=== PATIENT | female | born 1980 | race Caucasian/White ===

== ENCOUNTER → 2018-05-18 08:17 | Outpatient (CLI) | payer BC, SELFPAY ==
[2018-05-18 10:22] LABS: Cholesterol 137 mg/dL (200); High Density Lipoprotein 63 mg/dL; Triglycerides 41 mg/dL; Very Low Density Lipoprotein 8 mg/dL (5-40)
== END ==
PROVIDERS: Family Provider Family Medicine; PCP Family Medicine; Visit Provider Family Medicine
DX: Z00.00 Encounter for general adult medical examination without abnormal findings (principal)
CPT/HCPCS: 36415; 80061

== ENCOUNTER → 2018-06-30 14:32 | Outpatient (CLI) | payer BC, SELFPAY ==
[2018-06-30 15:58] LABS: Hematocrit 38.3 % (37-47); Hemoglobin 12.1 g/dl (12.0-15.0); Mean Corp Hgb Conc 31.6 g/gl (32-36); Mean Corpuscular Hgb 28.2 pg (27.0-32.0); Mean Corpuscular Volume 89.3 fL (81-99); Mean Platelet Vol. 9.5 fl (6.2-12.0); Platelet Count 247 K/mm3 (150-450); RBC Distribution Width CV 13.4 % (11.6-14.6); RBC Distribution Width SD 43.4 fl (35.1-43.9); Red Blood Count 4.29 M/mm3 (4.2-5.4); White Blood Count 7.3 K/mm3 (4.4-11.0)
[2018-06-30 16:02] LABS: Scan Indicated on CBC? Y/N NO
[2018-06-30 16:58] LABS: HIV - WCH Non-Reactive (Nonreactive); Rubella IgG 78.6 IU/mL
[2018-07-03 11:38] LABS: HEPATITIS B SURFACE AG Negative (Negative)
[2018-07-07 01:33] LABS: Rapid Plasmin Reagin (RPR) NONREACTIVE (NONREACTIVE)
== END ==
PROVIDERS: Family Provider Family Medicine; PCP Family Medicine; Visit Provider Obstetrics & Gynecology
DX: Z34.80 Encounter for supervision of other normal pregnancy, unspecified trimester (principal); Z3A.08 8 weeks gestation of pregnancy
CPT/HCPCS: 36415; 85027; 86592; 86703; 86762; 86850; 86900; 87340

== ENCOUNTER → 2018-10-27 09:53 | Outpatient (CLI) | payer BC, SELFPAY ==
[2018-10-27 14:24] LABS: Absolute Lymphocyte Count 1.95 X10^3/ul (0.83-4.51); Absolute Neutrophil Count 4.7 X10^3/uL (2.0-7.7); Basophil# 0.02 X10^3/uL; Basophil% 0.3 % (0-1); Eosinophil# 0.13 X10^3/uL; Eosinophils% 1.7 % (0-5); Hematocrit 34.6 % (37-47); Lymphocyte # 1.95 X10^3/ul (4.0); Lymphocyte % 25.8 % (19-41); Mean Corp Hgb Conc 31.8 g/gl (32-36); Mean Corpuscular Volume 94.3 fL (81-99); Mean Platelet Vol. 9.7 fl (6.2-12.0); Monocyte# 0.72 X10^3/uL; Monocyte% 9.5 % (0-10); Neutrophil # 4.69 X10^3/uL (2.7-7.7); Platelet Count 263 K/mm3 (150-450); RBC Distribution Width CV 13.2 % (11.6-14.6); RBC Distribution Width SD 43.7 fl (35.1-43.9); Red Blood Count 3.67 M/mm3 (4.2-5.4); White Blood Count 7.6 K/mm3 (4.4-11.0)
[2018-10-27 14:25] LABS: POSITIVE COUNT NO; POSITIVE DIFFERENTIAL NO; POSITIVE MORPHOLOGY NO
[2018-10-27 14:29] LABS: Glucose Challenge Gest 1H 50g 86 mg/dL (70-140)
--- OUTSIDE RECORDS SUMMARY | 2018-12-22 04:56 | XMS RPT_ITS ---
:1980 Author Organization OHIP Care Team Providers Name Role Phone JOAQUINA PEREZ Attending Unavailable MINESH VILLANUEVA Attending Unavailable HARISH HARRIS (MIRNA) Referring Unavailable JOAQUINA PEREZ Attending Unavailable JOAQUINA PEREZ Attending Unavailable JOAQUINA PEREZ Attending Unavailable MINESH VILLANUEVA Attending Unavailable JOAQUINA PEREZ Referring Unavailable JOAQUINA PEREZ Attending Unavailable HARISH HARRIS ([facility]) Attending Unavailable ELYSE LAFLEUR Attending Unavailable MARLON JACKSON Attending Unavailable Stephen Saavedra Attending Unavailable Stephen Saavedra Primary Care Unavailable Joaquina Perez Attending Unavailable Stephen Saavedra Primary Care Unavailable Joaquina Perez Attending Unavailable Stephen Saavedra Primary Care Unavailable PROBLEMS PROBLEMS DATE TYPE CONDITION / CODE ATTENDING STATUS SOURCE 06/30/2018 Unknown Z34.80 - Nicolas Perez Jewell Encounter for [facility] other normal Repository , unspecified trimester / Z34.80(ICD-10) 06/30/2018 Unknown Z3A.08 - 8 weeks Nicolas Perez [place] gestation of [facility] Z3A.08(ICD-10) Repository 05/18/2018 Unknown Z00.00 - Stephen Saavedra Active Jewell Encounter for [facility] medical Repository examination without abnormal findings / Z00.00(ICD-10) 12/21/2017 Active Unknown / ANA Active [facility] UNK(Unknown) JOAQUINA L Main [place] Repository PROCEDURES PROCEDURES No Procedure Records FoundRESULTS RESULTS CBC W/DIFF, AUTOMATED Collected: 10/27/2018 Status: F Source: [place] 9:50 AM [facility] CODE TESTS RESULT OUT OF RANGE REFERENCE UNITS LAB L100.1000 4.4-11.0 K/mm3 Normal WBC 7.6 LAB L100.1200 4.2-5.4 M/mm3 Low RBC 3.67 LAB L100.1300 12.0-15.0 g/dl Low HGB 11.0 LAB L100.1400 37-47 % Low HCT 34.6 LAB L100.1500 81-99 fL Normal MCV 94.3 LAB L100.1600 27.0-32.0 pg Normal MCH 30.0 LAB L100.1700 32-36 g/gl Low MCHC 31.8 LAB L100.1810 11.6-14.6 % Normal RDW CV 13.2 LAB L100.1820 35.1-43.9 fl Normal RDW SD 43.7 LAB L100.1900 150-450 K/mm3 Normal PLT 263 LAB L100.2000 6.2-12.0 fl Normal MPV 9.7 LAB L100.2100 47-70 % Normal NEUT% 62.0 LAB L100.2200 19-41 % Normal LY% 25.8 LAB L100.2300 0-10 % Normal MONO% 9.5 LAB L100.2400 0-5 % Normal EO% 1.7 LAB L100.2500 0-1 % Normal BASO% 0.3 LAB L100.2550 0.0-0.9 % Normal IM GRAN % 0.700 Result Comment: IG% - Immature Granulocytes (promyelocytes, myelocytes and metamyelocytes) > 1% indicates that a LEFT SHIFT is Present. LAB L100.2620 2.0-7.7 X10 3/uL Normal Absolute Neut 4.7 LAB L100.2720 0.83-4.51 X10 3/ul Normal Absolute Lymph 1.95 Performed By: #### L100.0100 #### [facility] [address] [place], [address] GLUCOSE CHALLENGE GEST Collected: 10/27/2018 Status: F Source: [place] 1H 50G 9:50 AM [facility] [place] TYPE CODE TESTS RESULT OUT OF RANGE REFERENCE UNITS LAB L501.0250 70-140 mg/dL Normal GLU GEST 86 50g 1H Performed By: #### L501.0250 #### [facility] [address] [place], [address] PROGRESS Observed: 08/29/2018 Status: COMPLETED Source: [place] 9:15 AM [facility] REPOSITORY HNO ID: [id number] Author: Minesh Villanueva Service: (none) Author Type: Physician Type: Progress Notes Filed: 08/29/2018 9:16 AM Note Text: A harris? fetus in utero with symmetric measurements Adequate growth (AGA). Estimated Date of Delivery: 01/20/19 EGA = 19w3d The anatomy appears normal. There are no evident malformations and /or effusions. No genetic markers are noted. The amniotic fluid volume is within normal limits. The sensitivity of ultrasound in the detection of malformations overall is approximately 35%. RECOMMENDATIONS: - Follow up ultrasound as clinically indicated PROGRESS Observed: 08/15/2018 Status: COMPLETED Source: [place] 8:59 AM [facility] REPOSITORY HNO ID: [id number] Author: Camille Caldwell Ma Service: (none) Author Type: (none) Type: Progress Notes Filed: 08/15/2018 11:46 AM Note Text: 38 year old female here for INACTIVATED INFLUENZA VACCINE. [id number] Season Patient is identified by name and date of : Yes [] CONTRAINDICATIONS color enhanced section Age less than 6 months? No Allergy to eggs, chicken, chicken feathers, or chicken dander? No Allergy to thimerosal (a preservative) or formaldehyde? No History of severe reaction to any vaccine component or a previous dose of influenza vaccination? No History of Guillain-[place] Syndrome within 6 weeks after a previous influenza vaccine? No Current moderate or severe illness? No Current temperature greater or equal to 100.4F? No History of Bone Marrow Transplant in past 6 months or solid organ transplant in the past 3 months ? No [] VERIFICATION color enhanced section Was the answer Yes for any of the above contraindications? No contraindications present. Acceptable to proceed with vaccine. Patient/guardian agrees the above answers are true to the best of their knowledge? Yes Flu vaccine information sheet given? Yes See immunization activity in [facility] for details of immunizations adminstered today. Patient age: [age] year old For The 4084-2285 Flu Season 6-35 months old: Fluzone 0.25 ml - IM (Preservative Free) 3 years of age: Fluzone 0.5 ml - IM (Preservative Free) 3 years and older: Fluzone 0.5 ml- IM-(with Preservatives) 65+ years old: Fluzone High-Dose 0.5 ml - IM (Preservative Free) REMEMBER: If patient is less than 9 years of age and this is the first vaccine of Influenza to be received in any flu season, they should receive a second dose in one months time. Camille Caldwell Ma CBC-COMPLETE BLOOD CNT Collected: 06/30/2018 Status: F Source: [place] NO DIFF 2:33 PM [facility] [place] TYPE CODE TESTS RESULT OUT OF RANGE REFERENCE UNITS LAB L100.1000 4.4-11.0 K/mm3 Normal WBC 7.3 LAB L100.1200 4.2-5.4 M/mm3 Normal RBC 4.29 LAB L100.1300 12.0-15.0 g/dl Normal HGB 12.1 LAB L100.1400 37-47 % Normal HCT 38.3 LAB L100.1500 81-99 fL Normal MCV 89.3 LAB L100.1600 27.0-32.0 pg Normal MCH 28.2 LAB L100.1700 32-36 g/gl Low MCHC 31.6 LAB L100.1810 11.6-14.6 % Normal RDW CV 13.4 LAB L100.1820 35.1-43.9 fl Normal RDW SD 43.4 LAB L100.1900 150-450 K/mm3 Normal PLT 247 LAB L100.2000 6.2-12.0 fl Normal MPV 9.5 Performed By: #### L100.0500 #### [facility] [address] [place], [place], [id number] TYPE AND SCREEN Collected: 06/30/2018 Status: F Source: [place] 2:33 PM [facility] [place] Order Comment: Reason for Type AND Screen/Red Cells: TYPE CODE TESTS RESULT OUT OF RANGE REFERENCE UNITS LAB B10.0800 O Normal BLOOD TYPE GEL POSITIVE LAB B100.4000 Normal Antibody NEGATIVE Screen Performed By: #### B101.7450 #### [facility] [address] [place], [address] RUBELLA IGG Collected: 06/30/2018 Status: F Source: [place] 2:33 PM [facility] TYPE CODE TESTS RESULT OUT OF RANGE REFERENCE UNITS LAB L509.4000 IU/mL Normal Rubella IgG 78.6 Result Comment: Antibody results Interpretation of Immune Status < 5 IU/ml Presumed Non-immune 5 - < 10 IU/ml Equivocal > or = 10 IU/ml Presumed Immune Performed By: #### L509.4000, L3890.6005 #### [facility] [place], [place], [id number] HIV - [facility] Collected: 06/30/2018 Status: F Source: [place] 2:33 PM [facility] [place] TYPE CODE TESTS RESULT OUT OF RANGE REFERENCE UNITS LAB L3890.6005 Nonreactive Normal HIV - [facility] Non-Reactive Performed By: #### L509.4000, L3890.6005 #### [facility] [place], [place], [address] HEPATITIS B SURFACE Collected: 06/30/2018 Status: F Source: [place] AG 2:33 PM [facility] [place] TYPE CODE TESTS RESULT OUT OF RANGE REFERENCE UNITS LAB L3100.0400 Negative Normal HB Negative SURF AG Result Comment: Performed at: - [facility] [address] [id number] Nuclear Worker Technician: Emory Payan PhD, Phone: [phone] Performed By: #### L3100.0390 #### [facility] (refer to report for specific site) refer to report for address and phone number RAPID PLASMIN REAGIN Collected: 06/30/2018 Status: F Source: [place] (RPR) 2:33 PM [facility] [place] TYPE CODE TESTS RESULT OUT OF REFERENCE UNITS RANGE LAB L700.5000 NONREACTIVE NONREACTIVE Normal RPR Performed By: #### L700.5000 #### [facility] [address] [place], [address] GC/CHLAMYDIA AMPLIF Collected: 06/13/2018 Status: F Source: [place] 11:30 AM [facility] REPOSITORY TYPE CODE TESTS RESULT OUT OF REFERENCE UNITS RANGE LAB GCCTSR GC/Chlam Amp Cervix Source LAB GCAMPL GC Negative Amplification for Neisseria gonorrhoeae by amplification. LAB CLAMPL Chlamydia Negative Amplif for Chlamydia trachomatis by amplification. Performed By: #### GCCT #### [facility] [address] [place], [place] [address] TOXICOLOGY SCREEN,UR Collected: 06/13/2018 Status: F Source: [place] 11:00 AM [facility] REPOSITORY TYPE CODE TESTS RESULT OUT OF REFERENCE UNITS RANGE LAB UPCP2 Negative Negative Phencyclidin e, Urine Result Comment: Cutoff threshold at 25 ng/mL. LAB UBENZ2 Negative Benzodiazepines, Ur Negative Result Comment: Cutoff threshold at 200 ng/mL. LAB UCOC2 Negative Cocaine, Negative Urine Result Comment: Cutoff threshold at 300 ng/mL. LAB UAMPH2 Negative Amphetamines, Urine Negative Result Comment: Cutoff threshold at 1000 ng/mL. LAB UTHC2 Negative Cannabinoids, Urine Negative Result Comment: Cutoff threshold at 50 ng/mL. LAB UOPI2 Negative Opiates, Negative Urine Result Comment: Cutoff threshold at 300 ng/mL. LAB UBARB2 Negative Barbiturates, Urine Negative Result Comment: Cutoff threshold at 200 ng/mL. LAB UETOH <11 mg/dL <11 Ethanol, Urine LAB UOXYC Negative Oxycodone, Negative Urine Result Comment: Cutoff threshold at 100 ng/mL. Comment: Immunoassay screen only. Cross reactivity with other substances can occur with immunoassay screening. Detection of any drug(s) in this urine toxicology panel is presumptive only. These tests are for med ica purposes only and should not be used for compliance monitoring, legal, or forensic use. Samples should be within normal physiological conditions (e.g. pH). This assay does not include adulteration/specimen validity testing. In clinical settings, confirmatory testing is at the practitioner's discretion [1]. If clinically indicated, confirmation by high specificity, quantitative methodology, which includes adulteration/spec imen validity testing, may be requested on the same specimen through Client Services ([phone]) if contacted within 48 hours of initial testing. [1]Substance Abuse and Mental Health Services Administration (2012). Clinical Drug Testing in Primary Care Technical Assistance Publication Series 32. Department of Health and Human Services, [place], p.10. These tests were developed and their performance characteristics determined by [facility]'s [facility] Pathology and Laboratory Medicine [place] ([facility]). They have not been cleared or a pproved by the FDA. [facility] is regulated under CLIA as qualified to perform high complexity testing. These tests are used for clinical purposes. They should not be regarded as investigational or for research. Performed By: #### UTOX2 #### [facility] [address] [place], [place] [address] Observed: 06/13/2018 Status: F Source: [place] URINE CULTURE 11:00 AM [facility] REPOSITORY Sp. Request/Comment: - Best Practice Alert: To ensure optimal transport conditions and accurate culture results transfer urine specimens to russ top C and S preservative tube. Culture Result - No growth (<1,000 CFU/ml) Performed By: #### URCUL #### [facility] [address] [place], [place] [address] PROGRESS Observed: 06/13/2018 Status: COMPLETED Source: [place] 10:14 AM [facility] REPOSITORY HNO ID: [id number] Author: Joaquina Perez Service: (none) Author Type: Physician Type: Progress Notes Filed: 06/13/2018 10:54 AM Note Text: INITIAL OB ASSESSMENT OB Provider: Joaquina Perez MD HPI: Tessa Franco is a 37 year old female here to establish Obstetrical Care. Patient's last menstrual period was 04/09/2018. from OB Dating Form. Cycle length: irreg in number of days Complaints: nausea without vomiting was planned. Obstetric History T2 L2 SAB1 TAB0 Ectopic0 Multiple0 Live Births2 Comment: G3 8 week size, 11 w by dates. DANDC-RR Prior : yes x 1 History of 4th degree laceration: No Patient's Risk Screening for delivery: History of abnormal pap: No Prior treatment for cervical dysplasia: none. History of STDs: None Tobacco use: No Caffeine use: No Drug use: No Alcohol use: No Multivitamin with Folic acid: Yes Occupation: homemaker Hinduism or heritage: No Would refuse blood transfusion if medically necessary: No No weight on file for this encounter. Patient BMI over 30? No Marital Status: Partner: Name: Ricky Age: 46 Occupation: [employer] Gender: male History of STDs: None PAST MEDICAL HISTORY Diagnosis Date - Abnormal Pap smear of cervix ASCUS pap negative HPV - Depression - depression with 1st PAST SURGICAL HISTORY Procedure Laterality Date - DELIVERY ONLY 2006 , low transverse - DANDC (MISSED AB 1ST TRIMESTER) 08/19/2017 - [facility] N/CARPAL TUNNEL SURG Right 01/02/2016 Carpal tunnel decomp right - [facility] N/CARPAL TUNNEL SURG Left 01/30/2016 Carpal tunnel decomp - ONLY 03/2015 Current Outpatient Prescriptions on File Prior to Visit: sertraline (ZOLOFT) 50 mg tablet Take 1 tablet by mouth once daily. [id number] fum-folic acid-dss (SE-JORDAN 19, WITH DOCUSATE,) 29 mg iron- 1 mg-25 mg tab Take 1 Dose by mouth once daily. dapsone (ACZONE) 7.5 % glwp Apply to affected area. No current facility-administered medications on file prior to visit. Review of Systems: GENERAL: Negative for: Fever or Chills HEENT: Negative for: Headache, Impaired Vision, Ringing in Ears, Nosebleeds NECK: Negative for: Swelling, Pain, Stiffness RESPIRATORY: Negative for: Cough, Shortness of breath, Wheezing GASTROINTESTINAL: Negative for: Heartburn, Constipation, Diarrhea, Blood in stool, Vomiting MUSCULOSKELETAL: Negative for: Muscle or joint pain, stiffness, Joint swelling NEUROLOGIC/PSYCHIATRIC: Negative for: Weakness, Paralysis, Numbness, Tingling, Tremor, Anxiety, Depression, Memory loss SKIN: Negative for: Rash, Itching GENITOURINARY: Negative for: vaginal itching, vaginal discharge, hematuria or dysuria PHYSICAL EXAM: LMP 04/09/2018 GENERAL: pleasant female DERMATOLOGY: Normal, without lesions, non-icteric and non-hirsute NECK: Supple, full range of motion, no adenopathy and thyroid normal CHEST: Normal inspiratory effort BREAST: soft, non-tender, symmetric, no dominant mass, normal nipple-areolar complex, no lymphadenopathy and no nipple discharge ABDOMEN: soft, non-tender and no masses NEURO: alert and oriented x3,exam grossly non-focal PELVIS: External genitalia normal without lesions. Perineal body intact. No vaginal or cervical lesions. Cervix closed. Uterus 8 week size. No adnexal masses or tenderness. Clinical Pelvimetry: Pelvimetry clinically assessed as adequate Limited OB ultrasound exam: not performed, single intrauterine , positive cardiac activity and crown-rump length 21.1 mm ASSESSMENT: 37 year old at 8w3d wks gestational age PLAN: 1) Patient oriented to practice. Discussed nutrition, folic acid supplementation, dietary guidelines, exercise, smoking, alcohol, caffeine, and drug use. Discussed routine OB labs including STD/HIV. Discussed aneuploidy screening options including serum screening and nuchal translucency. Patient declines all aneuploidy screening. CF carrier screening discussed and declined. 2) Recommend ASA 81 mg daily at 11-12 weeks to decrease risk of preeclampsia Follow up in 4 weeks or sooner prn. Joaquina Perez MD PROGRESS Observed: 05/30/2018 Status: COMPLETED Source: [place] 1:45 PM [facility] REPOSITORY HNO ID: [id number] Author: Minesh Villanueva Service: (none) Author Type: Physician Type: Progress Notes Filed: 05/30/2018 1:46 PM Note Text: A single intrauterine gestational sac is noted with a regular outline. No decidual hemorrhage is noted. The yolk sac appears normal. An embryo is visualized with a heart rate within normal range Estimated Date of Delivery: 01/20/19 EGA = 6w3d The CRL corresponds to the gestational age. RECOMMENDATIONS - Ultrasound examination at 11 to 13 weeks To mesure the nuchal translucency (NT) if first trimester screening is desired . PROGRESS Observed: 05/18/2018 Status: COMPLETED Source: [place] 11:21 AM [facility] REPOSITORY HNO ID: [id number] Author: Susanna He RN Service: (none) Author Type: (none) Type: Progress Notes Filed: 05/18/2018 11:37 AM Note Text: #: 1, Date: 03/16/07, Sex: Male, Weight: 7 lb 12 oz (3.515 kg), GA: 38w4d, Delivery: , Low Transverse, Apgar1: None, Apgar5: None, Living: Living, Comments: labor at 36 weeks. #: 2, Date: 04/06/15, Sex: Male, Weight: 7 lb 6 oz (3.345 kg), GA: 38w5d, Delivery: , Spontaneous, Apgar1: None, Apgar5: None, Living: Living, Comments: , SROM, labor augmented with pitocin, 2nd degree vaginal laceration, EBL 300cc #: 3, Date: 08/19/17, Sex: None, Weight: None, GA: 11w6d, Delivery: MISSED AB, Apgar1: None, Apgar5: None, Living: None, Comments: None #: 4, Date: None, Sex: None, Weight: None, GA: None, Delivery: None, Apgar1: None, Apgar5: None, Living: None, Comments: None LIPID PROFILE Collected: 05/18/2018 Status: F Source: [place] 8:19 AM [facility] [place] TYPE CODE TESTS RESULT OUT OF RANGE REFERENCE UNITS LAB L501.4900 200 mg/dL Normal CHOL 137 Result Comment: <200 mg/dL Desirable 200-240 mg/dL Borderline >240 mg/dL High Risk LAB L501.5000 mg/dL Normal TRIG 41 Result Comment: The drugs N-Acetylcysteine and Metamizole may falsely depress this assay. Serum Triglycerides Reference Interval Normal <150 mg/dL Borderline high 150 - 199 mg/dL High 200 - 499 mg/dL Very High > or = 500 mg/dL LAB L501.6400 mg/dL Normal HDL 63 Result Comment: The drugs N-Acetylcysteine and Metamizole may falsely depress this assay. Reference Range HDL <40 mg/dL Low HDL Cholesterol HDL >or= 60 mg/dL High HDL Cholesterol LAB L501.6500 0-130 mg/dL Normal LDL 66 LAB L501.6600 5-40 mg/dL Normal VLDL 8 Performed By: #### L500.4100 #### [facility] [address] [place], [address] CNNURSE Observed: 05/18/2018 Status: COMPLETED Source: [place] 7:30 AM [facility] REPOSITORY Nurse Visit (WOOB) TESSA FRANCO ([id number]) 1980 F Date Time Provider Department 05/18/18 7:30 AM NURSE PNOB [facility] WOOB During your visit today, we recorded the following information about you: Last Period 04/09/18 Susanna He RN 05/18/2018 8:03 AM Signed SEQUENTIAL SCREENINGS The [facility] offers sequential screenings for women who are interested in screenings for chromosomal abnormalities and certain defects during a . The sequential screen combines ultrasound and blood tests to determine the risk of chromosomal abnormalities, including Down's Syndrome (Trisomy 21) and Trisomy 18, as well as open neural tube defects including spina bifida. Ultrasound examination is performed between 11 weeks and 13 weeks gestational age. Blood tests are drawn after the ultrasound and again later in the between 15 and 21 weeks gestational age. Please let your physician know if you are interested in this testing. It will require an appointment with our fuel testing technician. This is not an ultrasound performed by a physician in our office during a routine visit. SIGNS AND SYMPTOMS OF LABOR 1. Contractions every 10 minutes or more often 2. Clear, pink, or brownish fluid (water) leaking from vagina 3. Feeling that baby is pushing down, pressure 4. Low, dull backache 5. Cramps that feel like a period 6. Cramps with or without diarrhea If you notice any of the above symptoms, contact our office at [phone] and ask to speak with a nurse. After hours, you can call [facility] at [phone] OR call [facility] at [phone] and ask to have the doctor sole conditioner paged. If you consider this an emergency, dial [phone]-- or go to your nearest emergency department. Cord-Blood Banking Up until recently, the umbilical cord--along with the blood that remained in it after a baby was born and the cord cut--was simply discarded by the hospital. Then, in the late , researchers discovered that cord blood possessed unusual properties that made it useful in the treatment of patients with some cancers and other illnesses. While the actual process of collecting cord blood is straightforward, many parents are not even aware that this option now exists, much less familiar with all the issues involved. The case for saving your baby's cord blood The blood running back and forth between your baby and the placenta is full of immature cells called stem cells. Unlike embryonic stem cells, which have the ability to develop into any type of body cell, cord-blood stem cells already are locked into a certain, vital function: making all the different components of the blood, such as platelets, white blood cells, and red blood cells-serving, in effect, like bone marrow. When transfused into a patient whose own blood cells have faulty genetic coding or have been destroyed by chemotherapy or other cancer treatments, the cord-blood cells can implant themselves in the bone marrow and generate legions of new, healthy cells. These days, cord-blood transplants most commonly are used in cancer patients when a donor can't be found for a bone-marrow transplant. The treatment is particularly effective in young patients-the [facility] Cord Blood [facility] reports a 70 percent success rate in children, but only 20 to 40 percent in adults. Researchers envision improving those odds and see many future applications as well, such as curing sickle cell disease and other blood-related genetic illnesses. So there is a possibility that your child, or someone else, may need these super-healthy and versatile cells one day. The drawbacks Aside from not knowing about this medical option, the main reason most people do not save their baby's stem cells is cost. In a private blood bank, the initial costs run from $275 to $1,500. Most also charge a yearly storage fee of $50 to $95. The advantage of using a private bank is that your sample is saved for only you to use. An alternative to private banking Public cord-blood howe are an alternative. These cost no money to use, but your sample is not specifically saved for you. Another person with a more immediate need may use it. If the time should come that you need stem cells, yours may still be available, or you may use donations from other people without charge. You also can direct your sample to go to a relative with an immediate need if the blood type matches. Anyone else needing to use stem cells from a public bank who has not been a donor must pay for it, sometimes tens of thousands of dollars. Will my family benefit from saving stem cells? Right now, situations in which stem cells would be helpful are quite rare. As mentioned earlier, stem-cell transplants are most commonly used for rare genetic conditions and for some types of cancer, including leukemia and lymphoma. And even with these present uses, many questions remain. In cancer treatment, for example, some researchers are concerned about the wisdom of transplanting back into the child the same cells that already showed a propensity to become malignant. Doctors also aren't sure if the number of cells taken at the time of would be enough to treat a full-grown 16-year-old. It is also not completely clear how active the cells would be after years of being stored. The treatment is so new and rare, we just don't have the data yet to resolve these important issues. What do the experts say? The [employer] [employer] encourages philanthropic blood banking in public howe, but only for families with a current or potential need. Blood-bank proponents encourage any kind of banking, pointing out that research is getting closer and closer to many diverse, live-saving applications. How do I decide? Each family must weigh the pros and cons for themselves. Some families say that any cost is worth their peace of mind. Others say that in the face of uncertainty about the effectiveness of the treatment, they will use their resources elsewhere. Some choose the middle ground of donating publicly, knowing that their sample might benefit another family, if not themselves. For more information, ask your doctor or nurse, and be sure to check out our article on the technical aspects of cord-blood banking. Technical Aspects of Cord-Blood Banking If you are interested in storing your baby's umbilical-cord blood because of its possible use in emerging medical treatments, you must make arrangements with a blood bank before your child is born. The collection procedure is quite simple: After delivery of the baby, the umbilical cord is clamped and cut in the usual way. The blood that remains in the umbilical-cord vessels is then collected in sterile containers. The blood may be removed from the cord with a large needle or allowed to flow freely, depending on the company's collection system. The containers may look like large test tubes or like the plastic bags used in a blood bank. It does not cause the mother or the baby any pain to collect the blood, and no blood is taken that the baby needs at the moment. The nurse, oil pipeline operator, or physician will then label the samples, check them over with you, and package them for a special pickup arranged with a commercial carrier. When the blood arrives at the blood-bank facility, it is processed and the parents are notified. It is then kept in an advanced storage system for years. How do I know that my sample is safe? Power outages and bankruptcies potentially could threaten any organization, but so far none have been reported. It is to be hoped that the scientists in these howe would arrange for safe transfer to another facility if the need arose. YOU MUST MAKE ARRANGEMENTS AHEAD OF TIME! Public cord-blood howe--DONATION: [employer] [phone] [facility]'s Placental Blood Program, [facility] Umbilical Cord Blood Bank, Private cord-blood howe--SAVING FOR YOUR OWN USE: [employer], (I think this is the least expensive) [employer] [phone] [employer], [phone]) [employer] [place] [facility], [phone] Cells, [phone] [place] [facility], Cord Blood Registry, [phone]) [employer], An Internet search may provide you with additional listings. Susanna He RN 05/18/2018 11:37 AM Signed #: 1, Date: [birth year], Sex: Male, Weight: 7 lb 12 oz (3.515 kg), GA: 38w4d, Delivery: , Low Transverse, Apgar1: None, Apgar5: None, Living: Living, Comments: labor at 36 weeks. #: 2, Date: 04/06/15, Sex: Male, Weight: 7 lb 6 oz (3.345 kg), GA: 38w5d, Delivery: , Spontaneous, Apgar1: None, Apgar5: None, Living: Living, Comments: , SROM, labor augmented with pitocin, 2nd degree vaginal laceration, EBL 300cc #: 3, Date: 08/19/17, Sex: None, Weight: None, GA: 11w6d, Delivery: MISSED AB, Apgar1: None, Apgar5: None, Living: None, Comments: None #: 4, Date: None, Sex: None, Weight: None, GA: None, Delivery: None, Apgar1: None, Apgar5: None, Living: None, Comments: None Referring Provider: SELF [200] Allergies As of Date: 05/18/2018 Noted Allergy Reaction SEASONAL ALLERGIES 07/21/2017 14 - Other: See Comments Date Reviewed: 05/18/2018 Reviewed by: Susanna He RN - Fully Assessed Reason for Visit: Care [86] Cmt: Pre-New OB Primary Visit Diagnosis:ADVANCED MATERNAL AGE:MULTIPARA[659.63] [O09.529] Other Visit Diagnoses:History of miscarriage [Z87.59] Antepartum multigravida of advanced maternal age [O09.529] History of [Z98.891] Current with history of spontaneous during prior [O09.299] Previous labor affecting , antepartum [O09.219] History of depression [Z87.59, Z86.59] Order(s):NABILA PT ED WILDLIFE PROTECTOR [] Order #: [id number]: 1 FUTURE NABILA PT ED WILDLIFE PROTECTOR [] Order #: [id number]: 1 FUTURE NABILA PT ED WILDLIFE PROTECTOR [] Order #: [id number]: 1 FUTURE NABILA PT ED WILDLIFE PROTECTOR [] Order #: [id number]: 1 FUTURE NABILA PT ED WILDLIFE PROTECTOR [] Order #: [id number]. #:[id number]: 1 NABILA PT ED WILDLIFE PROTECTOR [] Order #: [id number]. #:[id number]: 1 NABILA PT ED WILDLIFE PROTECTOR [] Order #: [id number]. #:[id number]: 1 NABILA PT ED WILDLIFE PROTECTOR [] Order #: [id number]. #:[id number]: 1 OBSTETRIC ULTRASOUND WHI [[id number]] Order #: [id number]: 1 Prescriptions as of 05/18/2018 Sig: SERTRALINE 50 MG TABLET Take 1 tablet by mouth once d* VIT 119-IRON FUM 29 * Take 1 Dose by mouth once niyah* DAPSONE 7.5 % TOPICAL GEL WIT* Apply to affected area. Problem List As Of Date 05/18/2018 Noted Resolved Anxiety in , antepartum [O99.340, F41.*INVALID FOR*06/02/2015 Vomiting or nausea of [O21.9] INVALID FOR*06/02/2015 History of delivery affecting pregnanc*INVALID FOR* More... Supervision of normal [Z34.90] INVALID FOR*06/02/2015 More... Carpal tunnel syndrome, right [G56.01] INVALID FOR* Anxiety and depression [F41.9, F32.9] INVALID FOR* Carpal tunnel syndrome, left [G56.02] INVALID FOR* Advanced maternal age in multigravida [O09.529] INVALID FOR* More... History of depression [Z86.59] INVALID FOR* More... Family history of myelofibrosis [Z82.0] INVALID FOR* More... Patient requested diagnostic testing [Z01.89] INVALID FOR* More... Antepartum multigravida of advanced maternal ag*INVALID FOR* More... History of [Z98.891] INVALID FOR* More... Current with history of spontaneous a*INVALID FOR* More... Previous labor affecting , ant*INVALID FOR* More... History of depression [Z87.59, Z86.5*INVALID FOR* More... Other instructions from your clinician: SEQUENTIAL SCREENINGS The [facility] offers sequential screenings for women who are interested in screenings for chromosomal abnormalities and certain defects during a . The sequential screen combines ultrasound and blood tests to determine the risk of chromosomal abnormalities, including Down's Syndrome (Trisomy 21) and Trisomy 18, as well as open neural tube defects including spina bifida. Ultrasound examination is performed between 11 weeks and 13 weeks gestational age. Blood tests are drawn after the ultrasound and again later in the between 15 and 21 weeks gestational age. Please let your physician know if you are interested in this testing. It will require an appointment with our fuel testing technician. This is not an ultrasound performed by a physician in our office during a routine visit. SIGNS AND SYMPTOMS OF LABOR 1. Contractions every 10 minutes or more often 2. Clear, pink, or brownish fluid (water) leaking from vagina 3. Feeling that baby is pushing down, pressure 4. Low, dull backache 5. Cramps that feel like a period 6. Cramps with or without diarrhea If you notice any of the above symptoms, contact our office at [phone] and ask to speak with a nurse. After hours, you can call doctors registry at [phone] OR call [facility] at [phone] and ask to have the doctor sole conditioner paged. If you consider this an emergency, dial 9-1-1 or go to your nearest emergency department. Cord-Blood Banking Up until recently, the umbilical cord--along with the blood that remained in it after a baby was born and the cord cut--was simply discarded by the hospital. Then, in the late , researchers discovered that cord blood possessed unusual properties that made it useful in the treatment of patients with some cancers and other illnesses. While the actual process of collecting cord blood is straightforward, many parents are not even aware that this option now exists, much less familiar with all the issues involved. The case for saving your baby's cord blood The blood running back and forth between your baby and the placenta is full of immature cells called stem cells. Unlike embryonic stem cells, which have the ability to develop into any type of body cell, cord-blood stem cells already are locked into a certain, vital function: making all the different components of the blood, such as platelets, white blood cells, and red blood cells-serving, in effect, like bone marrow. When transfused into a patient whose own blood cells have faulty genetic coding or have been destroyed by chemotherapy or other cancer treatments, the cord-blood cells can implant themselves in the bone marrow and generate legions of new, healthy cells. These days, cord-blood transplants most commonly are used in cancer patients when a donor can't be found for a bone-marrow transplant. The treatment is particularly effective in young patients- the [facility] Cord Blood Bank reports a 70 percent success rate in children, but only 20 to 40 percent in adults. Researchers envision improving those odds and see many future applications as well, such as curing sickle cell disease and other blood-related genetic illnesses. So there is a possibility that your child, or someone else, may need these super-healthy and versatile cells one day. The drawbacks Aside from not knowing about this medical option, the main reason most people do not save their baby's stem cells is cost. In a private blood bank, the initial costs run from $275 to $1,500. Most also charge a yearly storage fee of $50 to $95. The advantage of using a private bank is that your sample is saved for only you to use. An alternative to private banking Public cord-blood howe are an alternative. These cost no money to use, but your sample is not specifically saved for you. Another person with a more immediate need may use it. If the time should come that you need stem cells, yours may still be available, or you may use donations from other people without charge. You also can direct your sample to go to a relative with an immediate need if the blood type matches. Anyone else needing to use stem cells from a public bank who has not been a donor must pay for it, sometimes tens of thousands of dollars. Will my family benefit from saving stem cells? Right now, situations in which stem cells would be helpful are quite rare. As mentioned earlier, stem-cell transplants are most commonly used for rare genetic conditions and for some types of cancer, including leukemia and lymphoma. And even with these present uses, many questions remain. In cancer treatment, for example, some researchers are concerned about the wisdom of transplanting back into the child the same cells that already showed a propensity to become malignant. Doctors also aren't sure if the number of cells taken at the time of would be enough to treat a full-grown 16-year-old. It is also not completely clear how active the cells would be after years of being stored. The treatment is so new and rare, we just don't have the data yet to resolve these important issues. What do the experts say? The [place] [employer] encourages philanthropic blood banking in public howe, but only for families with a current or potential need. Blood-bank proponents encourage any kind of banking, pointing out that research is getting closer and closer to many diverse, live-saving applications. How do I decide? Each family must weigh the pros and cons for themselves. Some families say that any cost is worth their peace of mind. Others say that in the face of uncertainty about the effectiveness of the treatment, they will use their resources elsewhere. Some choose the middle ground of donating publicly, knowing that their sample might benefit another family, if not themselves. For more information, ask your doctor or nurse, and be sure to check out our article on the technical aspects of cord-blood banking. Technical Aspects of Cord-Blood Banking If you are interested in storing your baby's umbilical- cord blood because of its possible use in emerging medical treatments, you must make arrangements with a blood bank before your child is born. The collection procedure is quite simple: After delivery of the baby, the umbilical cord is clamped and cut in the usual way. The blood that remains in the umbilical-cord vessels is then collected in sterile containers. The blood may be removed from the cord with a large needle or allowed to flow freely, depending on the company's collection system. The containers may look like large test tubes or like the plastic bags used in a blood bank. It does not cause the mother or the baby any pain to collect the blood, and no blood is taken that the baby needs at the moment. The nurse, oil pipeline operator, or physician will then label the samples, check them over with you, and package them for a special pickup arranged with a commercial carrier. When the blood arrives at the blood- bank facility, it is processed and the parents are notified. It is then kept in an advanced storage system for years. How do I know that my sample is safe? Power outages and bankruptcies potentially could threaten any organization, but so far none have been reported. It is to be hoped that the scientists in these howe would arrange for safe transfer to another facility if the need arose. YOU MUST MAKE ARRANGEMENTS AHEAD OF TIME! Public cord-blood howe--DONATION: [employer] [phone] [facility]'s Placental Blood Program, [facility] Umbilical Cord Blood Bank, Private cord-blood howe--SAVING FOR YOUR OWN USE: [employer], (I think this is the least expensive) [employer] [phone] [employer], [phone]) [employer] [place] [facility], [phone] Cells, [phone] [place] [facility], Cord Blood Registry, ([phone]) CORDBLOOD [employer], An Internet search may provide you with additional listings. Disposition: Return in 4 weeks (on 06/13/2018) for New OB with Dr Perez. Follow-up and Disposition History Recorded Encounter Status:Closed by SUSANNA HE RN on 05/18/18 PROGRESS Observed: 01/02/2018 Status: COMPLETED Source: [place] 11:13 AM [facility] REPOSITORY HNO ID: [id number] Author: Alina Dalal Psr Service: (none) Author Type: (none) Type: Progress Notes Filed: 01/02/2018 11:13 AM Note Text: pap logged, letter sent. Alina Dalal Psr HPV W/GENOTYPE Collected: 12/21/2017 Status: F Source: [place] 5:02 PM [facility] REPOSITORY TYPE CODE TESTS RESULT OUT OF REFERENCE UNITS RANGE LAB HPVT16 HPV HighRisk Negative for Type 16 HPV DNA high risk type 16 by PCR. LAB HPVT18 HPV HighRisk Negative for Type 18 HPV DNA high risk type 18 by PCR. LAB HPVHRO HPV HighRisk Negative for Other HPV DNA high risk types: 31,33,35,39,45 ,51,52,56,58,5 9,66,68 by PCR. Result Comment: This test was developed and its performance characteristics determined by [facility]'s [facility] [place] ([facility]). It has not been cleared or approved by the FDA. [facility] is regulated under CLIA as qualified to perform high-complexity testing. This test is used for clinical purposes. It should not be regarded as inv estigational or for research. Performed By: #### HPVHRR #### [facility] [address] [place], [place] [address] CYTOLOGY Observed: 12/21/2017 Status: C Source: [place] 5:02 [facility] REPOSITORY ADDITIONAL PROCEDURES PRESENT Specimen originated from [facility] Specimen #: [id number] Submitting Physician: JOAQUINA PEREZ M.D. ([id number]) SPECIMEN SUBMITTED A: CERVICAL, SCREENING, FLUID FINAL DIAGNOSIS A. CERVICAL, SCREENING, FLUID Satisfactory for interpretation. Negative for intraepithelial lesion or malignancy. This specimen has been analyzed by the ThinPrep Imaging System, an automated imaging and review system, which assists the laboratory in evaluating cells on ThinPrep Pap tests. Following automated imaging, selected lugo from every slide are reviewed by a clinical research coordinator. ESAH Moffett(ASCP) (Electronic Signature) ADDITIONAL PROCEDURE(S) HUMAN PAPILLOMA VIRUS Date Ordered: 12/23/2017 Date Reported: 12/26/2017 Procedure Results and Interpretation Negative for HPV DNA high risk type 16 by PCR. Negative for HPV DNA high risk type 18 by PCR. Negative for HPV DNA high risk types: 31,33,35,39,45,51,52,56,58,59,66,68 by PCR. This test was developed and its performance characteristics determined by [facility]'s [facility] [place] ([facility]). It has not been cleared or approved by the FDA. [facility] is regulated under CLIA as qualified to perform high-complexity testing. This test is used for clinical purposes. It should not be regarded as investigational or for research. CLINICAL DATA ROUTINE EXAM, HPV Testing: Yes, automatic HPV patients over 30 Date of Last Menstrual Period: 12/04/2017 STAINS A: CERVICAL, SCREENING, FLUID THIN PREP SENIOR INFORMATION DEVELOPER Aliyah Park M.D., [place] [employer] Date of Report: 12/30/2017 Date of Procedure: 12/21/2017 Date of Receipt: 12/23/2017 Submitted by: JOAQUINA PEREZ M.D. ([id number]) Location: [facility] Diagnostic interpretation performed at [facility], [address] [place] [address]. The Pap Smear is a screening test for cervical cancer. False negative results occur with all screening tests, emphasizing the need for rescreening at recommended intervals, and clinical correlation. PROGRESS Observed: 12/21/2017 Status: COMPLETED Source: [place] 4:06 PM [facility] REPOSITORY HNO ID: [id number] Author: Joaquina Perez Service: (none) Author Type: Physician Type: Progress Notes Filed: 12/21/2017 5:03 PM Note Text: Tessa Franco is a 37 year old who presents for her annual gynecologic exam without complaints. Menses regular, wants to be . Menses: cycles every 29 days and 5 days of flow. Contraception: none HPV vaccine: No Last Pap: 2014 abnormal, ascus HPV: negative History of abnormal pap: No Sexually active: Yes Obstetric History T2 L2 SAB1 TAB0 Ectopic0 Multiple0 Live Births2 Comment: G3 8 week size, 11 w by dates. DANDC-RR PAST MEDICAL HISTORY Diagnosis Date - Abnormal Pap smear of cervix ASCUS pap negative HPV - Depression - depression with 1st PAST SURGICAL HISTORY Procedure Laterality Date - DELIVERY ONLY 2006 , low transverse - DANDC (MISSED AB 1ST TRIMESTER) 08/19/2017 - [facility] N/CARPAL TUNNEL SURG Right 01/02/2016 Carpal tunnel decomp right - [facility] N/CARPAL TUNNEL SURG Left 01/30/2016 Carpal tunnel decomp - ONLY 03/2015 FAMILY HISTORY Problem Relation Age of Onset - Blood Disease, myelofibrosis [OTHER] Maternal Grandfather - Arthritis Paternal Grandmother - Cancer Paternal Grandfather Liver SOCIAL HISTORY Social History Substance Use Topics - Smoking status: Never Smoker - Smokeless tobacco: Never Used - Alcohol use No REVIEW OF SYSTEMS Abdomen: No abdominal pain, nausea, vomiting, diarrhea, or constipation. No bloating, early satiety, indigestion, or increased flatulence. Bladder: No dysuria, gross hematuria, urinary frequency, urinary urgency, or incontinence. Breast: No breast lumps, nipple d/c, overlying skin changes, redness or skin retraction. Allergies and current medication updated:Yes EXAM: There were no vitals taken for this visit. GENERAL: pleasant, female in no apparent distress HEENT: Normocephalic, atraumatic, mucus membranes moist and no lesions NECK: Supple, full range of motion, no adenopathy and thyroid normal DERMATOLOGY: Normal, without lesions, non-icteric and non-hirsute BREAST: soft, non-tender, symmetric, no dominant mass, normal nipple-areolar complex, no lymphadenopathy and no nipple discharge CHEST: Normal inspiratory effort ABDOMEN: soft, non-tender and no masses PELVIC: external genitalia normal, normal Bartholin's glands, urethra, Mcgaffey's glands, no vulvar lesions, no cervical lesions, good vaginal support, physiologic discharge present, normal appearing perineal body and perianal region BIMANUAL: uterus normal size, shape and consistency, no adnexal masses and non-tender RECTOVAGINAL: deferred. NEURO: alert and oriented x3,exam grossly non-focal EXTREMITIES: normal ASSESSMENT/PLAN: 1) Health maintenance: Pap done with HPV. Mammogram starting age 40. 2) Contraception: none. Contraceptive options reviewed and information provided. 3) STD screening: Declined STD check. 4) Follow up one year or sooner as needed folic acid in anticipation of mood stable on zoloft, refill given Joaquina Perez MD CNOV Observed: 12/21/2017 Status: COMPLETED Source: [place] 3:50 PM [facility] [place] REPOSITORY Office Visit (WOOB) TESSA FRANCO ([id number]) 1980 F Date Time Provider Department 12/21/17 3:50 PM JOAQUINA PEREZ WOOB During your visit today, we recorded the following information about you: Blood pressure Weight Height Last Period 60.3 kg 1.651 m 12/04/17 Joaquina Perez MD 12/21/2017 5:03 PM Signed Tessa Franco is a 37 year old who presents for her annual gynecologic exam without complaints. Menses regular, wants to be . Menses: cycles every 29 days and 5 days of flow. Contraception: none HPV vaccine: No Last Pap: 2014 abnormal, ascus HPV: negative History of abnormal pap: No Sexually active: Yes Obstetric History T2 L2 SAB1 TAB0 Ectopic0 Multiple0 Live Births2 Comment: G3 8 week size, 11 w by dates. DANDamp;C-RR PAST MEDICAL HISTORY Diagnosis Date - Abnormal Pap smear of cervix ASCUS pap negative HPV - Depression - depression with 1st PAST SURGICAL HISTORY Procedure Laterality Date - DELIVERY ONLY 2006 , low transverse - DANDamp;C (MISSED AB 1ST TRIMESTER) 08/19/2017 - REVISE MEDIAN N/CARPAL TUNNEL SURG Right 01/02/2016 Carpal tunnel decomp right - [facility] N/CARPAL TUNNEL SURG Left 01/30/2016 Carpal tunnel decomp - ONLY 03/2015 FAMILY HISTORY Problem Relation Age of Onset - Blood Disease, myelofibrosis [OTHER] Maternal Grandfather - Arthritis Paternal Grandmother - Cancer Paternal Grandfather Liver SOCIAL HISTORY Social History Substance Use Topics - Smoking status: Never Smoker - Smokeless tobacco: Never Used - Alcohol use No REVIEW OF SYSTEMS Abdomen: No abdominal pain, nausea, vomiting, diarrhea, or constipation. No bloating, early satiety, indigestion, or increased flatulence. Bladder: No dysuria, gross hematuria, urinary frequency, urinary urgency, or incontinence. Breast: No breast lumps, nipple d/c, overlying skin changes, redness or skin retraction. Allergies and current medication updated:Yes EXAM: There were no vitals taken for this visit. GENERAL: pleasant, female in no apparent distress HEENT: Normocephalic, atraumatic, mucus membranes moist and no lesions NECK: Supple, full range of motion, no adenopathy and thyroid normal DERMATOLOGY: Normal, without lesions, non-icteric and non-hirsute BREAST: soft, non-tender, symmetric, no dominant mass, normal nipple-areolar complex, no lymphadenopathy and no nipple discharge CHEST: Normal inspiratory effort ABDOMEN: soft, non-tender and no masses PELVIC: external genitalia normal, normal Bartholin's glands, urethra, Mcgaffey's glands, no vulvar lesions, no cervical lesions, good vaginal support, physiologic discharge present, normal appearing perineal body and perianal region BIMANUAL: uterus normal size, shape and consistency, no adnexal masses and non-tender RECTOVAGINAL: deferred. NEURO: alert and oriented x3,exam grossly non-focal EXTREMITIES: normal ASSESSMENT/PLAN: 1) Health maintenance: Pap done with HPV. Mammogram starting age 40. 2) Contraception: none. Contraceptive options reviewed and information provided. 3) STD screening: Declined STD check. 4) Follow up one year or sooner as needed folic acid in anticipation of mood stable on zoloft, refill given Joaquina Perez MD Referring Provider: SELF [200] Allergies As of Date: 12/21/2017 Noted Allergy Reaction SEASONAL ALLERGIES 07/21/2017 14 - Other: See Comments Date Reviewed: 12/21/2017 Reviewed by: Joaquina Perez - Fully Assessed Reason for Visit: Yearly Exam [187] Primary Visit Diagnosis:Encounter for gynecological examination (general) (routine) without abnormal findings [Z01.419] Other Visit Diagnosis:Screening for malignant neoplasm of cervix [Z12.4] Order(s):sertraline (ZOLOFT) 50 mg tabletTake 1 tablet by mouth once daily.Disp: 90 tabletRfl: 3 [id number] fum-folic acid-dss (SE- 19, WITH DOCUSATE,) 29 mg iron- 1 mg-25 mg tabTake 1 Dose by mouth once daily.Disp: 30 tabletRfl: 11 PAP FLUID CERVICAL SCREENING [[id number]] Order #: [id number] Prescriptions as of 12/21/2017 Sig: SERTRALINE 50 MG TABLET Take 1 tablet by mouth once d* VIT #119-IRON FUM 29* Take 1 Dose by mouth once niyah* DAPSONE 7.5 % TOPICAL GEL WIT* Apply to affected area. Problem List As Of Date 12/21/2017 Noted Resolved Anxiety in , antepartum [O99.340, F41.*INVALID FOR*06/02/2015 Vomiting or nausea of [O21.9] INVALID FOR*06/02/2015 History of delivery affecting pregnanc*INVALID FOR* More... Supervision of normal [Z34.90] INVALID FOR*06/02/2015 More... Carpal tunnel syndrome, right [G56.01] INVALID FOR* Anxiety and depression [F41.8] INVALID FOR* Carpal tunnel syndrome, left [G56.02] INVALID FOR* Advanced maternal age in multigravida [O09.529] INVALID FOR* More... History of depression [Z86.59] INVALID FOR* More... Family history of myelofibrosis [Z82.0] INVALID FOR* More... Patient requested diagnostic testing [Z01.89] INVALID FOR* More... Prescriptions ordered this encounter Disp Refills Start End SERTRALINE 50 MG TABLET 90 t* 3 12/21/2017 Route: ORAL Sig: Take 1 tablet by mouth once daily. VIT #119-IRON FUM 29 MG-FOL* 30 t* 11 12/21/2017 Route: ORAL Sig: Take 1 Dose by mouth once daily. Medications Discontinued During This Encounter sertraline (ZOLOFT) 50 mg tablet 90 t* 0 10/26/2017 12/21/2017 Sig: take 1 tablet by mouth once daily Disc: Reason for discontinue is not on file. UQT418-band fum-folic acid-dss (SE-N* 12/21/2017 Class: Historical Med Route: ORAL Sig: Take by mouth. Disc: Reason for discontinue is not on file. Disposition: Return in 1 year (on 12/21/2018) for Annual Exam. Follow-up and Disposition History Recorded Encounter Status:Closed by JOAQUINA PEREZ MD on 12/21/17 ALLERGIES ALLERGIES DATE TYPE / CODE NAME / CODE REACTION SEVERITY SOURCE 07/21/2017 Environ/420 SEASONAL OTHER: SEE C [facility] [id number](SNOM ALLERGIES Main [place] ED CT) Repository 04/06/2015 Drug No Known Unknown [facility] Allergy/416 Allergies/[id number] [facility] 516953(SNOM 0388(RXNORM) Repository ED CT) ENCOUNTERS ENCOUNTERS ADMIT/DISCHARGE ACCOUNT ADMITTING ENCOUNTER LOCATION SOURCE NUMBER CLASS 11/10/2018/11/14/[id number] Repository 10/27/2018 [id number] [facility] ing:MFPLAB Repository 10/27/2018/10/30/[id number] Main [place] Repository 10/13/2018/10/16/[id number] Repository 09/13/2018/09/14/20 [id number] Ambulatory [address] Main [place] Repository 08/29/2018/08/31/[id number] Repository 08/15/2018/08/16/[id number] Repository 07/18/2018/07/19/[id number] Repository 06/30/2018 [id number] [facility] ing:MFPLAB Repository 06/13/2018/06/14/20 [id number] Ambulatory [address] [place] Repository 05/30/2018/06/02/[id number] Repository 05/18/2018 [id number] [facility] ing:MFPLAB Repository 05/18/2018/05/19/20 [id number] Ambulatory [address] Repository 12/21/2017/12/23/[id number] Repository PAYERS PAYERS ENCOUNTER GUARANTOR PAYER SUBSCRIBER SOURCE 10/27/2018 Tessa [id number] Primary RICKY [address] [place] STIBBS Insurance:ANTHEMPolic RUFENERDOB[facility] [facility] Number: [id number] [facility] [id number]: [phone] [id number] Repository [phone] () Date:9030-18-24OD [address], [place] [address]BV: 10/27/2018 Secondary NOT GIVENUNK Jewell Insurance:SELF PAY [facility] Number: Effective Repository Date:2018-10-27 06/30/2018 Tessa [id number] Primary R[address] [place] STIBBS Insurance:ANTHEMPolic RUFENERDOB: [facility] [place] y Number: [id number] Hospital [id number]: [phone]) [id number] Repository [phone] () Date:6878-27-79KF [address], [place] [address]BS: 06/30/2018 Secondary NOT GIVENUNK Jewell Insurance:SELF PAY [facility] Number: Effective Repository Date:2018-06-30 05/18/2018 Tessa [id number] Primary RICK[place] STIBBS Insurance:ANTHEMPolic RUFENERDOB: [facility] [place] y Number: [id number] [facility] [id number]: [phone]) [id number] Repository [phone] () Date:2309-95-10PD [address], [place] [address]YF: 05/18/2018 Secondary NOT GIVENUNK Jewell Insurance:SELF PAY [facility] Number: Effective Repository Date:2018-05-18
== END ==
PROVIDERS: Family Provider Family Medicine; PCP Family Medicine; Visit Provider Obstetrics & Gynecology
DX: Z34.82 Encounter for supervision of other normal pregnancy, second trimester (principal)
CPT/HCPCS: 36415; 82950; 85025

== ENCOUNTER 2019-01-18 07:05 | Inpatient (IN) | payer BC, SELFPAY ==
[2017-08-19 15:06] VITALS: BMI 26.3
[2019-01-18 07:38] VITALS: BMI 27.6
[2019-01-18] MEDS: Lactated Ringers 1,000 ML 50 ML IV ×2 (07:40→11:21)
[2019-01-18 07:58] LABS: Hematocrit 37.4 % (37-47); Mean Corp Hgb Conc 32.1 g/gl (32-36); Mean Corpuscular Hgb 29.3 pg (27.0-32.0); Mean Corpuscular Volume 91.4 fL (81-99); Mean Platelet Vol. 9.4 fl (6.2-12.0); Platelet Count 234 K/mm3 (150-450); RBC Distribution Width CV 13.9 % (11.6-14.6); Red Blood Count 4.09 M/mm3 (4.2-5.4); White Blood Count 8.9 K/mm3 (4.4-11.0)
[2019-01-18 07:59] LABS: Scan Indicated on CBC? Y/N NO
[2019-01-18] MEDS: Oxytocin 30 units/NS 500 ml 30 UNITS/500 ML IV.SOLN IV (08:30)
[2019-01-18] MEDS: fentaNYL-bupivacaine (epidural) 100 ML BAG EPIDURAL (11:31)
--- NOTE | 2019-01-18 12:00 | PCM.HP.OB ---
- Problem List (1) Anxiety and depression Status: Acute (2) AMA (advanced maternal age) multigravida 35+ Status: Acute (3) History of Status: Acute (4) History of depression Status: Acute (5) History of delivery Status: Acute History Date of Admission: 01/18/19 Final LEIGH: 01/20/19 Final LEIGH Source: LMP Gestational age: 39 Weeks and 5 Days History of this : This is a 38 year-old, G 4, P 2011, at 39 weeks gestational age who presents for IOL given AMA. Allergies No Known Allergies Allergy (Verified 01/18/19 07:39) Home Medications: Home Medications Vits [Prenatabs FA ] 1 tablet PO DAILY 04/06/15 Sertraline HCl [Zoloft] 50 mg PO DAILY 04/06/15 Smoking Status: Never smoker Number of Fetus(es): 1 Heart Tracin/mod mary anne/+accels/no decels TOCO Analysis: ctx's q 2-3 min History Past Pregnancies: Past Pregnancies Delivery Date Name GA/Weeks Outcome Route Weight Infant Gender Labor Length Anesthesia Delivery Location Provider FOB term C/S term 8 wk SAB Labs: GBS pos, 1 hr GTT 86, Hep B neg, RI, HIV NR, Rh pos, Antibody screen neg, RPR NR, GC/CT neg, UDS neg Expected Infant Delivery Method: Number of Visits: 16 Review of Systems Gynecological: Reports: - - No ctx, vb, lof. Good FM Physical Exam General: Alert, No apparent distress HEENT: Atraumatic Lungs: - - No increased resp effort Abdomen: Soft, Gravid Extremities:: No edema Neurological: Neuro grossly intact Estimated gestational size: Appropriate for gestational size Presentation: Cephalic Assessment/Plan All Active Problems Anxiety and depression (Acute) AMA (advanced maternal age) multigravida 35+ (Acute) History of (Acute) History of depression (Acute) History of delivery (Acute) This is a 38 year-old, G 4, P 2011, at 39 weeks gestational age who presents for IOL for AMA. - Hx of prior followed by successful . Pt has been counseled on the risks and benefits for both a TOLAC and repeat . She consents to a TOLAC - Routine intrapartum care - Epidural prn - Penicillin for GBS positive - S/p AROM and placement of internals per Dr. Petersen - Management per quality control representative physician Dr. Petersen
[2019-01-18] MEDS: Oxytocin 30 units/NS 500 ml 30 UNITS/500 ML IV.SOLN 334 UNITS IV (13:20)
--- NOTE | 2019-01-18 13:32 | PCM.OB.VAG ---
Vaginal Delivery Maternal Presentation: Medically Indicated Induction Method of Induction: Pitocin, Amniotomy Medical Reason for Induction: - - Advanced maternal age Amniotic Membrane Rupture Type: Artificial Amniotic Fluid Description: Clear Final LEIGH: 01/20/19 Final LEIGH Source: US <20 weeks Gestational age: 39 Weeks and 5 Days Date of Procedure: 01/18/19 Pre-Operative Diagnosis: labor Post-Operative Diagnosis: same Surgery/ Procedure Performed: Spontaneous Vaginal Delivery - Type of Anesthesia: Epidural Description of Procedure: A vigorous male was delivered KWAME over a first-degree vaginal laceration. The remainder the infant was delivered with maternal pushing and gentle traction only in less than 15 seconds. The Pitocin infusion was initiated for active management of the third stage. The cord was clamped and cut after 1 minute. The was attended to by the waiting nursing staff. The placenta was delivered spontaneously and intact. The cervix and vagina were intact. The first-degree vaginal laceration was repaired with 3-0 Vicryl rapid suture. sponge and needle counts were correct. A vaginal sweep was completed by me. Presentation: KWAME Placental Delivery Description: Spontaneous Placenta Disposition: [facility] Cord Vessel Description: 3 Vessels Cord Entanglement: None Drain: Robledo to straight drain Estimated Blood Loss: 300cc Infant A gender: Male Episiotomy Description: None Laceration: 1st degree - vaginal Medications given after delivery: IV Pitocin Complications: None
--- NOTE | 2019-01-18 13:35 | OP.PCM_ITS ---
Vaginal Delivery Maternal Presentation: Medically Indicated Induction Method of Induction: Pitocin, Amniotomy Medical Reason for Induction: - - Advanced maternal age Amniotic Membrane Rupture Type: Artificial Amniotic Fluid Description: Clear Final LEIGH: 01/20/19 Final LEIGH Source: US <20 weeks Gestational age: 39 Weeks and 5 Days Date of Procedure: 01/18/19 Pre-Operative Diagnosis: labor Post-Operative Diagnosis: same Surgery/ Procedure Performed: Spontaneous Vaginal Delivery - Type of Anesthesia: Epidural Description of Procedure: A vigorous male was delivered KWAME over a first-degree vaginal lacerati on. The remainder the was delivered with maternal pushing and gentle traction only in less than 15 seconds. The Pitocin infusion was initiated for active management of the third stage. The cord was clamped and cut after 1 minute. The infant was attended to by the waiting nursing staff. The placenta was delivered spontaneously and intact. The cervix and vagina were intact. The first-degree vaginal laceration was repaired with 3-0 Vicryl rapid suture. sponge and needle counts were correct. A vaginal sweep was completed by me. Presentation: KWAME Placental Delivery Description: Spontaneous Placenta Disposition: [facility] Cord Vessel Description: 3 Vessels Cord Entanglement: None Drain: Robledo to straight drain Estimated Blood Loss: 300cc A gender: Male Episiotomy Description: None Laceration: 1st degree - vaginal Medications given after delivery: IV Pitocin Complications: None
--- NOTE | 2019-01-18 13:45 | DCINST_ITS ---
Discharge Diet: No Restrictions Discharge Activity: Return to Normal Activity, May not drive while taking narcotic pain medications., May Shower May resume sexual activity in: 4-6 weeks Additional Activity Instructions:: Nothing in the vagina for 4-6 weeks. You may return to work/school in 6 weeks. Call your doctor if your incision/area has: Continuous Slow Oozing, Sudden Increased Bleeding, Increased Pain/ Swelling, Increased Redness, Foul Smelling Discharge Additional Instructions: If you experience any of the following, contact your healthcare provider. * Bleeding that soaks a pad every hour for 2 hours * Fever 100.4 or higher * Unrelieved incision or abdominal pain * Swelling, redness, discharge or bleeding from your incision or episiotomy site * Your incision begins to separate * Problems urinating (including inability to urinate or burning while urinating). * Visual changes * Severe headache * Flu-like symptoms * Pain or redness in one of both of your breasts * Pain, warmth, tenderness or swelling in your legs, especially the calf area * Frequent nausea and vomiting * Symptoms of depression or anxiety If you experience any of the following, call 911 or go to the nearest Emergency Room. * Chest pain * Problems breathing * Seizure activity * Partial or complete paralysis of a body part, slurred speech, weakness or drooping of the face, or a sudden inability to walk or hold your balance Allergies/Adverse Reactions: Allergies No Known Allergies Allergy (Verified 01/18/19 07:39) Medications to take at Discharge Vits [Prenatabs FA ] 1 tablet PO DAILY 04/06/15 Sertraline HCl [Zoloft] 50 mg PO DAILY 04/06/15 Ibuprofen [Motrin] 600 mg PO Q6H PRN #60 tablet 01/18/19 The following prescriptions were given: Ibuprofen [Motrin] 600 mg PO Q6H PRN #60 tablet PRN Reason: Pain Please Follow Up With: Tatiana Petersen MD - [phone] When: Call to make an appointment with your provider's office in 1-2 and 6 weeks or as needed Primary Care Physician: Stephen Saavedra MD [Primary Care Provider] - Test Results: Test results from this visit will be discussed in further detail at your follow- up appointment, if applicable.
[2019-01-18] MEDS: Oxytocin 30 units/NS 500 ml 30 UNITS/500 ML IV.SOLN 167 UNITS IV (13:50)
[2019-01-18 19:40] VITALS: BP 132/58; PULSE 95; RESP 16; TEMP 37.2; O2SAT 96
[2019-01-18] MEDS: Ibuprofen 600 MG Tablet PO (19:41)
[2019-01-18] MEDS: Acetaminophen 500 MG Tablet 1000 MG PO (23:34)
[2019-01-18 23:40] VITALS: BP 120/65; PULSE 85; RESP 16; TEMP 36.7; O2SAT 98
[2019-01-19] MEDS: Ibuprofen 600 MG Tablet PO ×2 (04:22→10:38)
[2019-01-19 04:33] VITALS: BP 114/69; PULSE 76; RESP 16; TEMP 36.8; O2SAT 100
[2019-01-19 08:00] VITALS: BP 101/60; PULSE 80; RESP 18; TEMP 36.7; O2SAT 99
--- NOTE | 2019-01-19 08:21 | PCM.PN.OB ---
Patient Problems: Active and Suspected Problems Anxiety and depression (Acute) AMA (advanced maternal age) multigravida 35+ (Acute) History of (Acute) History of depression (Acute) History of delivery (Acute) Subjective: pain well controlled, average lochia - Physical Exam General: Alert, Cooperative, No apparent distress Vital Signs Temp Pulse Resp BP Pulse Ox 98.3 F 76 16 114/69 100 01/19/19 04:33 01/19/19 04:33 01/19/19 04:33 01/19/19 04:33 01/19/19 04:33 Oxygen Delivery Method Room Air Weight: 75.2 kg Body Mass Index (BMI) 27.6 Intake and Output for Last 24 Hours 01/17/19 01/18/19 01/19/19 23:59 23:59 23:59 Intake Total 2398 / 2398 Output Total 2400 / 2400 Balance -2 / -2 Laboratory Tests Past 24 Hrs 01/18/19 07:40 Blood Type O POSITIVE Antibody Screen NEGATIVE Medical Necessity - Tobacco Use Smoking Status: Never smoker Assessment/Plan All Active Problems Anxiety and depression (Acute) AMA (advanced maternal age) multigravida 35+ (Acute) History of (Acute) History of depression (Acute) History of delivery (Acute) PPD#1 doing well infant may elect to stay until tomorrow due to ill child at home.
[2019-01-19] MEDS: Sertraline 50 MG Tablet PO (10:38)
--- NOTE | 2019-01-19 11:23 | CHAPLAIN ---
Type of Pastoral Visit _x__ Initial Visit ___ Follow-up Visit ___ On-call Visit ___ General Patient Visit ___ Spiritual Assessment ___ Family Conference ___ Bereavement ___ Rapid Response ___ Code Blue ___ Other (describe below) Pastoral Care Referral From _x__ Patient ___ Family ___ Nurse ___ Physician ___ Tank Worker ___ Heavy Equipment Operator/Paver ___ Other (describe below) Sacrament/Intervention _x__ Active listening ___ Anointing ___ Zoroastrian ___ Bereavement ___ Communion ___ Shelley exploration ___ _x__ Life review _x__ Prayer ___ Reconciliation ___ Sacrament of Sick _x__ Supportive presence ___ Wedding ___ Other (describe below) Pastoral Comments patient and family known by this equipment technician; pt requested visit;
--- NOTE | 2019-01-19 11:42 | CASEMGMT ---
Addendum entered and electronically signed by Ayala Velez 01/22/19 12:16: Reviewed and approve PRODUCTION MAINTENANCE TECHNICIAN student documentation below. -Ayala Velez, MARC-Kameron, RESIDENTIAL MENTAL HEALTH WORKER Original Note: Social Work Labor and Delivery Referral date:01/18/2019 Referral time: 1921 Referred by: Dr. Tatiana Petersen Date of Intervention: 01/19/2019 Time of Intervention: 1050am Reason for Referral: history of depression, depression, and anxiety. prescribed Zoloft. History obtained from: medical record, mother of baby (MOB) Tessa Hurtado, Father of baby Ricky Hurtado (FOB) Household composition: RONAN is living with ABELINO García and two other children, Francesco Meneses and Ady Hurtado. MOB denied any safety concerns or history of domestic violence. Nursing staff also previously asked private with MOB denying history of domestic violence, as well. Patient's parent/guardian status: FOB and MOB have been for over 5 years. MOB had previous relationship that resulted in of Francesco. RONAN has full custody and Francesco's father has visitation. MOB denied any history of child protective services with past relationship or current relationship. Medical History: MOB is G4:2 to 3 after of baby Jalil. MOB has diagnosis of anxiety, depression, and PPD. MOB has Zoloft prescription. MOB's care began at 8 weeks. Baby Jalil was born 01/18/19 at 7lbs 5oz with scores of 9 and 9. Educational Status: MOB has associates degree. 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 Infant Supplies: MOB reports to have car seat, crib, rock and play, clothing, diapers, wipes. Childcare/Caregiver(s): MOB plans to be primary caregiver. FOB will also be caregiver. Transportation: MOB and FOB did not report any issues with transportation as they both drive. Programs/Agencies Involved: MOB and FOB are not involved with any agencies. Children Services/Legal Issues: MOB denied any history of children services. Behavioral Health Issues: Mental Health History: MOB reported to have PPD with of first child. MOB explained went to doctor but somewhat sugar coated symptoms at the time. MOB has been prescribed Zoloft for anxiety. MOB used Zoloft throughout and plans to continue. Substance Abuse History: MOB denies any substance abuse history. Family History: MOB did not identify any concerns with family history. Drug Screens: Negative drug screen on 06/13/18 Family/Social Stressors: MOB did not report any current stressors. Support Systems: MOB reports FOB to be main support. Depression/Shaken Baby/Safe Sleeping: MOB and FOB and social work physician/internist reviewed safe sleeping, shaken baby, and PPD. PPD packet information reviewed and provided to both. ASSESSMENT: MOB was in room with FOB and baby Borup. MOB was holding baby in lap while on phone making appointment with permaculture contractor. MOB and FOB were pleasant and calm. MOB and FOB both responded appropriately to social work physician/internist's general questions. MOB reported that history of PPD was diagnosed previously and not formally treated but passed with time. MOB was later prescribed Zoloft for anxiety as described herself just an anxious person. MOB confirmed safety plan of calling doctor and speaking with FOB if PPD symptoms arise or anxiety worsens. MOB denied any suicidal thoughts prior, during, or after . MOB was bonding well with baby as always holding or kissing or glancing at baby. FOB also bonding well as allowed baby Borup to hold pinky finger until nurse came to take Borup for circumcision. PLAN: MOB to go home with baby. No other services requested or indicated at this time. -Areli Koo, PRODUCTION MAINTENANCE TECHNICIAN Student Washing Machine Assembler.
[2019-01-19 13:45] VITALS: BP 114/65; PULSE 88; RESP 18; TEMP 36.1; O2SAT 97
[2019-01-19 16:30] VITALS: BP 107/59; PULSE 90; RESP 18; TEMP 36.2; O2SAT 96
== END 2019-01-19 18:45 | disposition home or self-care (01) | DRG 807 ==
PROVIDERS: Admitting Provider Obstetrics & Gynecology; Family Provider Family Medicine; PCP Family Medicine; Referring Provider Obstetrics & Gynecology; Visit Provider Obstetrics & Gynecology
DX: O34.219 Maternal care for unspecified type scar from previous cesarean delivery (principal); O99.824 Streptococcus B carrier state complicating childbirth; O70.0 First degree perineal laceration during delivery; O99.344 Other mental disorders complicating childbirth; F32.9 Major depressive disorder, single episode, unspecified; F41.9 Anxiety disorder, unspecified; Z79.899 Other long term (current) drug therapy; Z3A.39 39 weeks gestation of pregnancy; Z37.0 Single live birth
CPT/HCPCS: 59025; 59050; 85027; 86850; 86900; 99218; J7120; G0378

== ENCOUNTER 2022-01-15 15:17 | Outpatient (CLI) | payer OTHER, SELFPAY ==
--- NOTE | 2022-01-15 15:20 | RAD_ITS ---
STUDY: X-RAY CHEST REASON FOR EXAM: Female, 41 years old. COUGH TECHNIQUE: Frontal and lateral views of the chest. COMPARISON: None. FINDINGS: The lungs are clear and expanded. There is no demonstrated pleural abnormality. Normal size heart. Normal mediastinum and amy. Normal visualized pulmonary arteries. Normal visualized aortic arch and descending thoracic aorta. Normal visualized thoracic spine. Normal visualized ribs, clavicles, and shoulders. There is no demonstrated abnormality of the visualized soft tissue structures of the upper abdomen. RAD/Chest PA and Lateral IMPRESSION: Normal x-ray examination of the chest. Electronically Signed: Melonie Gusman MD at 4:52 EST ,
== END 2022-01-15 23:59 | disposition home or self-care (01) ==
PROVIDERS: PCP Family Medicine; Referring Provider Registered Nurse; Visit Provider Registered Nurse
DX: R05.9 Cough, unspecified (principal)
CPT/HCPCS: 71046

== ENCOUNTER → 2023-04-01 | Outpatient (CLI) | payer OTHER, SELFPAY | END | disposition home or self-care (01) | LOC: LABSPEC 15:34 | PROVIDERS: PCP Family Medicine; Referring Provider Family Medicine; Visit Provider Family Medicine | DX: J03.90 Acute tonsillitis, unspecified (principal) | CPT/HCPCS: 87070; 87077 ==

== ENCOUNTER → 2024-08-09 | Outpatient (CLI) | payer OTHER, SELFPAY ==
[2024-08-15 11:10] LABS: HPV APTIMA, High Risk Negative (Negative)
== END | disposition home or self-care (01) ==
LOC: LABSPEC 12:18
PROVIDERS: PCP Family Medicine; Referring Provider Nurse Practitioner Family; Visit Provider Nurse Practitioner Family
DX: Z12.4 Encounter for screening for malignant neoplasm of cervix (principal)
CPT/HCPCS: 87624; 88175; G0145

== ENCOUNTER → 2024-08-28 | Outpatient (CLI) | payer OTHER, SELFPAY ==
--- NOTE | 2024-08-28 09:47 | BI_ITS ---
MAMMOGRAPHY - BILATERAL SCREENING REASON FOR EXAM: Female, 44 years old. Routine annual screening examination. PERTINENT HISTORY: Mother with breast cancer. TECHNIQUE: Digital bilateral breast jesus (3D mammographic acquisition) in the CC and MLO projections. 2-D mediolateral oblique (MLO) and craniocaudad (CC) views of both breasts were obtained. CAD: Full Field Digital Mammography with Computer Added Detection was performed. COMPARISON: Comparison is made with comparison examination dated September 11, 2020. FINDINGS: Breast Composition: The breasts are extremely dense, which lowers the sensitivity of mammography. There are no dominant masses or suspicious calcifications. No other significant abnormalities are identified. BI/SCRN MAMM (CAD)W/JESUS BILAT IMPRESSION: Negative screening mammogram. Yearly followup mammogram recommended. (A) ASSESSMENT CATEGORY: BIRADS Category 1: Negative. A letter regarding these results will be sent to the patient by the facility within 30 days. Approximately 10% of breast cancers are not detected by mammography. A normal mammogram should not delay biopsy of a clinically suspicious abnormality. [id number] Electronically Signed: Lucas Cadena MD at 13:42 EDT ,
== END | disposition home or self-care (01) ==
LOC: OPBI 09:47
PROVIDERS: PCP Family Medicine; Referring Provider Nurse Practitioner Family; Visit Provider Nurse Practitioner Family
DX: Z12.31 Encounter for screening mammogram for malignant neoplasm of breast (principal); Z80.3 Family history of malignant neoplasm of breast
CPT/HCPCS: 77063; 77067

== ENCOUNTER → 2025-08-19 | Outpatient (CLI) | payer OTHER, SELFPAY ==
--- NOTE | 2025-08-19 13:56 | BI_ITS ---
EXAM: DIAG MAMM W/CAD, BILAT 08/19/2025 CLINICAL HISTORY: F, Age 45 y/o , SCREEN FOR BREAST CANCER. Palpable right breast mass. Mother with breast cancer. TECHNIQUE: Procedure Code: [id number] Modality: MG Procedure: DIAG MAMM W/CAD, BILAT. COMPARISON: Prior exam(s) dated August 28, 2024.. FINDINGS: TISSUE DENSITY: The breasts are extremely dense, which lowers the sensitivity of mammography. Bilateral Breast Mammographic Findings: No significant masses, calcifications or other abnormalities are identified. No suspicious masses, areas of developing architectural distortion, or suspicious calcifications. There has been no significant interval change. BI/DIAG MAMM W/CAD, BILAT IMPRESSION: Stable bilateral screening mammogram. With the patient's history of a palpable lump in the right breast, targeted sonographic correlation recommended. OVERALL FINAL ASSESSMENT BI-RADS 0: INCOMPLETE - NEED ADDITIONAL IMAGING EVALUATION. RECOMMENDATION: Ultrasound Recommended Additional Recommendation none A letter with findings and recommendations will be mailed to the patient. Reading Location: [place] [address]
--- NOTE | 2025-08-19 13:56 | US_ITS ---
PROCEDURE: BREAST LIMITED UNILATERAL 08/19/2025 REASON FOR EXAM: F, Age 45 y/o , BREAST LUMP Right breast lump. COMPARISON: Prior mammogram done earlier in the day.. TECHNIQUE: Procedure Code: USBRSTLIMIT Modality: US Procedure: BREAST LIMITED UNILATERAL FINDINGS: Dense fibroglandular tissue. Mildly dilated ducts. US/Breast Limited Unilateral IMPRESSION: Dense fibroglandular tissue. BI-RADS 2: BENIGN RECOMMENDATION: Routine annual follow-up in 1 Year Reading Location: [place] [address]
== END | disposition home or self-care (01) ==
PROVIDERS: PCP Family Medicine; Referring Provider Nurse Practitioner Family; Visit Provider Nurse Practitioner Family
DX: N63.10 Unspecified lump in the right breast, unspecified quadrant (principal); Z80.3 Family history of malignant neoplasm of breast
CPT/HCPCS: 76642; 77062; 77066; G0279